=== PATIENT | female | born 1990 | race Caucasian/White ===

== ENCOUNTER 2024-01-01 19:26 | Inpatient (IN) | payer MEDICAID, SELFPAY ==
[2024-01-01] VITALS (35 sets, daily range): BP systolic 68–170; BP diastolic 55–105; PULSE 61–154; RESP 13–34; TEMP 36.8; O2SAT 94–99; BMI 26.2
--- NOTE | 2024-01-01 19:31 | XRR_ITS ---
PROCEDURE INFORMATION: Exam: XR Chest Exam date and time: 01/01/2024 8:12 PM Age: 32 years old Clinical indication: Other: Overdose TECHNIQUE: Imaging protocol: Radiologic exam of the chest. Views: 1 view. COMPARISON: No relevant prior studies available. FINDINGS: Lungs: Poor inspiratory effort with some crowding of pulmonary markings and possible accentuation of the apparent heart size. Mild peribronchial thickening and/or mild perihilar linear markings consistent with poor inspiratory effort and/or bronchitis and/or viral pneumonitis and/or reactive airway disease and/or atypical pulmonary interstitial edema. Pleural spaces: Unremarkable. No pleural effusion. No pneumothorax. Heart/Mediastinum: See Lungs finding. Bones/joints: Unremarkable. XR/XR chest 1V portable [id number] IMPRESSION: 1. Poor inspiratory effort with some crowding of pulmonary markings and possible accentuation of the apparent heart size. 2. Mild peribronchial thickening and/or mild perihilar linear markings consistent with poor inspiratory effort and/or bronchitis and/or viral pneumonitis and/or reactive airway disease and/or atypical pulmonary interstitial edema.
--- NOTE | 2024-01-01 19:32 | ECG_ITS ---
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 Measurements Intervals [place] Rate: 155 P: 74 RI: 115 QRS: 106 QRSD: 98 T: 56 QT: 277 QTc: 446 Interpretive Statements SINUS TACHYCARDIA WITH SHORT RI INTERVAL, POSSIBLE ATRIAL FLUTTER RIGHT AXIS DEVIATION [QRS AXIS > 100] NONSPECIFIC ST & T-WAVE ABNORMALITY No previous ECG available for comparison Electronically Signed On 01-02-2024 07:41:02 CDT by Milton Woodward M.D. [id number]
--- NOTE | 2024-01-01 19:38 | W.ED.OVERDOS ---
HPI - Overdose General: Chief Complaint: Overdose Stated Complaint: Overdose Time Seen by Provider: 01/01/24 19:30 Source: EMS Mode of arrival: EMS Limitations: altered mental status History of Present Illness: Patient arrived via EMS flight crew for overdose, patient was possibly doing drugs in [facility] when she overdosed. Patient was given Narcan and an IO started. Patient responded to the IO but not the Narcan. Patient possibly admitted to smoking marijuana, using methamphetamines and drinking alcohol. Patient knows her first name and can answer some questions but does not know her last name or date of . Boyfriend at that time was arrested because he had a meth pipe in his pocket and possibly taken to [facility] intermediate. Patient cannot control her full body twitching and spasming. Review of Systems General: Reports: ROS unobtainable due to medical condition and ROS unobtainable due to mental status Physical Exam Const: COMMON NORMALS: average body habitus, alert and well nourished OTHER: Patient has intermittent full body twitching and spasming but remains alert and coherent HENMT: COMMON NORMALS: normocephalic, atraumatic, hearing grossly normal bilaterally, external ears normal, Normal external nose present and moist oral mucous membranes HEAD & SCALP: normocephalic and atraumatic NOSE: Normal external nose present EXTERNAL EAR: Yes external ears normal Eye: COMMON NORMALS: Equal, round and reactive pupils present, EOMs intact bilaterally, conjunctivae normal and no scleral icterus CONJUNCTIVA: Yes conjunctivae normal PUPIL: Yes Equal, round and reactive pupils present Neck/C-Spine: COMMON NORMALS: full ROM, no lymphadenopathy, supple, no meningeal signs, no JVD and Thyroid normal THYROID: Thyroid normal Chest: COMMONS NORMALS: normal inspection of the chest and normal palpation of entire chest wall Resp: COMMON NORMALS: normal respiratory effort, No retractions, No use of accessory muscles and clear to auscultation bilaterally AUSCULTATION: clear to auscultation bilaterally Cardio: COMMON NORMALS: no JVD, regular rate, regular rhythm, S1 normal heart sound present, S2 normal heart sound present, No gallops present (Cardio), No clicks present (Cardio), No murmurs present (Cardio) and No rub (Cardio) RATE: regular rate RHYTHM: regular rhythm HEART SOUNDS: S1 normal heart sound present and S2 normal heart sound present GI: COMMON NORMALS: Normal to inspection, nondistended, normoactive bowel sounds present, Soft to palpation, non-tender, No hepatosplenomegaly present and no masses PALPATION: Yes Soft to palpation and Yes No hepatosplenomegaly present Neuro: SENSORIUM/ORIENTATION: Yes alert MENINGEAL SIGNS: Yes no meningeal signs Course Vital Signs: Vital signs: Vital Signs Temperature 98.3 F 01/01/24 19:43 Pulse Rate 89 01/01/24 22:40 Respiratory Rate 34 H 01/01/24 22:40 Blood Pressure 153/84 01/01/24 22:40 Pulse Oximetry 97 01/01/24 22:40 MDM - Overdose Medical Decision Making Presented with overdose by the flight crew. Patient does appear to be altered and cannot keep control of her arms and legs and spasming. Lab work was obtained which did show positive for amphetamines, THC and, alcohol. Patient had to be given Ativan for her restlessness and uncontrollable are moving. Dr. Charles was consulted. We will get a head CT and place the patient in ICU pending head CT. Medical Records I reviewed the patient's medical records. Lab Data I reviewed the patient's lab results. 01/01/24 19:50 01/01/24 19:50 Radiology Impressions Chest X-Ray 01/01/24 19:31 IMPRESSION: 1. Poor inspiratory effort with some crowding of pulmonary markings and possible accentuation of the apparent heart size. 2. Mild peribronchial thickening and/or mild perihilar linear markings consistent with poor inspiratory effort and/or bronchitis and/or viral pneumonitis and/or reactive airway disease and/or atypical pulmonary interstitial edema. Laboratory Results WBC 9.06 10^3/uL (3.29-11.43) 01/01/24 19:50 RBC 5.19 10^6/uL (3.85-5.65) 01/01/24 19:50 Hgb 16.30 g/dL (11.27-16.99) 01/01/24 19:50 Hct 47.9 % (36-47) H 01/01/24 19:50 MCV 92.3 fl (85-98) 01/01/24 19:50 MCH 31.4 pg (27-33) 01/01/24 19:50 MCHC 34.0 g/dL (30-55) 01/01/24 19:50 RDW 11.6 % (12.1-15.1) L 01/01/24 19:50 Plt Count 371 10^3/cmm (157-399) 01/01/24 19:50 MPV 10.1 fL (7.4-10.4) 01/01/24 19:50 Neut % (Auto) 84.9 % 01/01/24 19:50 Lymph % (Auto) 13.4 % 01/01/24 19:50 [place] % (Auto) 1.3 % 01/01/24 19:50 Eos % (Auto) 0.0 % 01/01/24 19:50 Baso % (Auto) 0.2 % 01/01/24 19:50 Neut # (Auto) 7.69 10^3/uL (1.8-7.7) 01/01/24 19:50 Lymph # (Auto) 1.2 10^3/uL (0.8-4.8) 01/01/24 19:50 [place] # (Auto) 0.1 10^3/uL (0.2-0.9) L 01/01/24 19:50 Eos # (Auto) 0.0 10^3/uL (0.0-0.8) 01/01/24 19:50 Baso # (Auto) 0.0 10^3/uL (0.0-0.1) 01/01/24 19:50 Nucleated RBC % (auto) 0 % 01/01/24 19:50 Nucleated RBCs # 0.0 /100WBC 01/01/24 19:50 Specimen Type Arterial 01/01/24 19:50 Sample Site Brachial, right 01/01/24 19:50 ABG pH 7.39 (7.35-7.45) 01/01/24 19:50 ABG pCO2 31.2 mmHg (35-45) L 01/01/24 19:50 ABG pO2 91.1 mmHg (80.0-100.0) 01/01/24 19:50 ABG HCO3 18.9 mmol/L (22-26) L 01/01/24 19:50 ABG O2 Saturation 97.4 01/01/24 19:50 ABG Base Excess -4.8 mmol/L (-2.0-2.0) L 01/01/24 19:50 Gilbert Test N/a 01/01/24 19:50 A-a O2 Gradient 2.5 mmHg (5-10) L 01/01/24 19:50 Hematocrit 47.9 % (37-47) H 01/01/24 19:50 Hgb O2 Saturation 92.6 % (95-100) L 01/01/24 19:50 Carboxyhemoglobin 4.5 %THgb (0.4-20.1) 01/01/24 19:50 Methemoglobin 0.4 % (0.4-1.5) 01/01/24 19:50 Total Hemoglobin 15.6 g/dL (12-16) 01/01/24 19:50 Sodium 146.0 mmol/L (131-143) H 01/01/24 19:50 Potassium 4.3 mmol/L (3.5-5.0) 01/01/24 19:50 Glucose 116.0 mg/dL (70-115) H 01/01/24 19:50 Ionized Calcium 1.1 mmol/L (1.1-1.4) 01/01/24 19:50 O2 Delivery Device Room air 01/01/24 19:50 Plant Cytologist ID [email or web address] 01/01/24 19:50 Sodium 143 mmol/L (136-145) 01/01/24 19:50 Potassium 4.4 mmol/L (3.5-5.1) 01/01/24 19:50 Chloride 106 mmol/L (98-107) 01/01/24 19:50 Carbon Dioxide 21 mmol/L (22-29) L 01/01/24 19:50 Anion Gap 20.4 (5-19) H 01/01/24 19:50 BUN 12 mg/dL (6-20) 01/01/24 19:50 Creatinine 0.6 mg/dL (0.5-0.9) 01/01/24 19:50 GFR Calculation 115.1 mL/min (90-130) 01/01/24 19:50 Glucose 122 mg/dL (65-115) H 01/01/24 19:50 Calculated Osmolality 297 mOsm/kg (285-295) H 01/01/24 19:50 Calcium 8.9 mg/dL (8.5-10.5) 01/01/24 19:50 Phosphorus 4.1 mg/dL (2.5-4.5) 01/01/24 19:50 Magnesium 2.2 mg/dL (1.7-2.3) 01/01/24 19:50 Total Bilirubin 0.6 mg/dL (0.15-1.2) 01/01/24 19:50 AST 18 U/L (0-32) 01/01/24 19:50 ALT 17 U/L (0-33) 01/01/24 19:50 Alkaline Phosphatase 81 U/L (35-105) 01/01/24 19:50 Creatine Kinase 92 U/L (26-192) 01/01/24 19:50 Troponin T Baseline < 6 ng/L (0-10) 01/01/24 19:50 Troponin T 120 Minute 6.00 ng/L (0-10) 01/01/24 21:52 Delta Troponin T 0.37104 ABS# (0-10) 01/01/24 21:52 C-Reactive Protein 3.0 mg/L (0.0-4.9) 01/01/24 19:50 Total Protein 8.0 g/dL (6.6-8.7) 01/01/24 19:50 Albumin 4.8 g/dL (3.5-5.2) 01/01/24 19:50 Globulin 3.2 g/dL (1.3-4.6) 01/01/24 19:50 HCG, Qual Negative (Negative) 01/01/24 19:50 Urine Color Yellow (Yellow) 01/01/24 21:49 Urine Appearance Clear (CLEAR) 01/01/24 21:49 Urine pH 5.5 (5-7) 01/01/24 21:49 Ur Specific [place] 1.011 (1.005-1.030) 01/01/24 21:49 Urine Protein Trace (Negative) A 01/01/24 21:49 Urine Glucose (UA) Negative (Normal) 01/01/24 21:49 Urine Ketones Negative (Negative) 01/01/24 21:49 Urine Blood Non-haemolysed trace (Negative) 01/01/24 21:49 Urine Nitrate Negative (Negative) 01/01/24 21:49 Urine Bilirubin Negative (Negative) 01/01/24 21:49 Urine Urobilinogen 0.2 mg/dL (Negative) 01/01/24 21:49 Ur Leukocyte Esterase 1+ (Negative) A 01/01/24 21:49 Urine RBC 0-2 /hpf (0-2) 01/01/24 21:49 Urine WBC 0-5 /hpf (0-5) 01/01/24 21:49 Ur Squamous Epith Cells 0-5 /hpf (0-5) 01/01/24 21:49 Amorphous Sediment Not Reportable 01/01/24 21:49 Urine Bacteria 4+ /hpf (NONE) H 01/01/24 21:49 Hyaline Casts 3.30 /lpf 01/01/24 21:49 Salicylates < 0.3 mg/dL (3-10) L 01/01/24 19:50 Urine Opiates Screen Negative ng/mL (Negative) 01/01/24 21:49 Acetaminophen < 5.0 ug/mL (10-30) L 01/01/24 19:50 Ur Barbiturates Screen Negative ng/mL (Negative) 01/01/24 21:49 Ur Phencyclidine Scrn Negative ng/mL (Negative) 01/01/24 21:49 Ur Amphetamines Screen Positive ng/mL (Negative) H 01/01/24 21:49 U Benzodiazepines Scrn Negative ng/mL (Negative) 01/01/24 21:49 Urine Cocaine Screen Negative ng/mL (Negative) 01/01/24 21:49 U Marijuana (THC) Screen Positive ng/mL (Negative) H 01/01/24 21:49 Ethyl Alcohol 177 mg/dL (0-10) H 01/01/24 19:50 All radiology interpretation(s) finalized by discharge Discharge Plan Discharge Patient Disposition: Admitted As Inpatient Clinical Impression: Polysubstance abuse Altered mental status Qualifiers: Altered mental status type: disorientation Qualified Code(s): R41.0 - Disorientation, unspecified Alcohol intoxication Qualifiers: Complication of substance-induced condition: uncomplicated Qualified Code(s): F10.920 - Alcohol use, unspecified with intoxication, uncomplicated Condition: Stable Coding Level of Care Code ED Janitorial Cleaner for Flex Mccann
[2024-01-01] MEDS: sodium chloride 0.9% 1,000 ML 999 ML IV (19:54)
[2024-01-01] MEDS: ondansetron 2 mg/ML SDV 2 mL 4 MG IVP (19:55)
[2024-01-01 20:00] LABS: ABG PCO2 31.2 mmHg (35-45); ABG PH Result 7.39 (7.35-7.45); Alveolar-Arterial Oxygen Gradi 2.5 mmHg (5-10); Arterial Blood Gas Hematocrit 47.9 % (37-47); Base Excess ABG -4.8 mmol/L (-2.0-2.0); Blood Gas Sample Site Brachial, right; Blood Gas Sample Type Arterial; Carboxyhemoglobin 4.5 %THgb (0.4-20.1); HCO3 ABG 18.9 mmol/L (22-26); HGB O2 Sat 92.6 % (95-100); Ionized Calcium Level - ABG 1.1 mmol/L (1.1-1.4); Methemoglobin 0.4 % (0.4-1.5); Oxygen Device ROOM AIR; Oxygen Saturation ABG 97.4; PO2 ABG 91.1 mmHg (80.0-100.0); Potassium Level - ABG 4.3 mmol/L (3.5-5.0); Total Hemoglobin 15.6 g/dL (12-16)
[2024-01-01 20:05] LABS: Basophils % 0.2 %; Hematocrit 47.9 % (36-47); Lymphocytes # 1.2 10^3/uL (0.8-4.8); Lymphocytes % 13.4 %; Mean Corpuscular Hemoglobin 31.4 pg (27-33); Mean Corpuscular Volume 92.3 fl (85-98); Mean Platelet Volume 10.1 fL (7.4-10.4); Monocytes # 0.1 10^3/uL (0.2-0.9); Monocytes % 1.3 %; Neutrophils # 7.69 10^3/uL (1.8-7.7); Neutrophils % 84.9 %; Nucleated Red Blood Cells % 0 %; Platelet Count 371 10^3/cmm (157-399); Red Blood Count 5.19 10^6/uL (3.85-5.65); Red Cell Distribution Width 11.6 % (12.1-15.1); White Blood Count 9.06 10^3/uL (3.29-11.43)
[2024-01-01 20:26] LABS: Troponin(5th) Baseline < 6 ng/L (0-10)
[2024-01-01 20:27] LABS: Acetaminophen < 5.0 ug/mL (10-30); Alanine Aminotransferase 17 U/L (0-33); Albumin Level 4.8 g/dL (3.5-5.2); Alcohol Level 177 mg/dL (0-10); Alkaline Phosphatase 81 U/L (35-105); Aspartate Amino Transferase 18 U/L (0-32); Blood Urea Nitrogen 12 mg/dL (6-20); Calcium 8.9 mg/dL (8.5-10.5); Carbon Dioxide 21 mmol/L (22-29); Chloride 106 mmol/L (98-107); Creatine Phosphokinase 92 U/L (26-192); Creatinine Clr Calc Pharmacy 117.9099; Globulin 3.2 g/dL (1.3-4.6); Glomerular Filtration Rate 115.1 mL/min (90-130); Glucose 122 mg/dL (65-115); Magnesium 2.2 mg/dL (1.7-2.3); Osmolality Calculated 297 mOsm/kg (285-295); Phosphorus 4.1 mg/dL (2.5-4.5); Salicylate < 0.3 mg/dL (3-10); Sodium 143 mmol/L (136-145); Total Bilirubin 0.6 mg/dL (0.15-1.2)
[2024-01-01 20:28] LABS: Anion Gap 20.4 (5-19); Potassium 4.4 mmol/L (3.5-5.1)
[2024-01-01 20:43] LABS: HCG, Serum Qual Negative (Negative)
[2024-01-01] MEDS: LORazepam 2 mg/mL INJ 1 mL IVP ×2 (21:13→23:18)
[2024-01-01 22:02] LABS: Bilirubin Urine Negative (Negative); Blood Urine Non-haemolysed trace (Negative); Glucose Urine UA Negative (Normal); Ketones Urine Negative (Negative); Leukocyte Esterase Urine 1+ (Negative); Nitrate Urine Negative (Negative); Protein Urine Trace (Negative); Specific Gravity, Urine 1.011 (1.005-1.030); Urine Appearance Clear (CLEAR); Urine Color Yellow (Yellow); Urobilinogen Urine 0.2 mg/dL (Negative); pH Urine 5.5 (5-7)
[2024-01-01 22:07] LABS: Add Urine Microscopic? YES; Bacteria Urine 4+ /hpf; RBC Urine 0-2 /hpf (0-2); Squamous Epithelial Cell Urine 0-5 /hpf (0-5); WBC Urine 0-5 /hpf (0-5)
[2024-01-01 22:09] LABS: Amphetamines Screen Urine Positive (Negative); Barbiturates Screen Urine Negative (Negative); Benzodiazepines Screen Urine Negative (Negative); Cocaine Screen Urine Negative (Negative); Opiate Screen Urine Negative (Negative); PCP Screen Urine Negative (Negative); THC Screen Urine Positive (Negative)
[2024-01-01 22:14] LABS: Add Urine Culture? Yes
[2024-01-01 22:17] LABS: Troponin 5 2HR Delta 0.00001 ABS# (0-10)
--- NOTE | 2024-01-01 23:05 | CTR_ITS ---
PROCEDURE INFORMATION: Exam: CT Head Without Contrast Exam date and time: 01/01/2024 11:34 PM Age: 32 years old Clinical indication: Alteration of consciousness; Transient alteration of awareness; Additional info: Overdose TECHNIQUE: Imaging protocol: Computed tomography of the head without contrast. Radiation optimization: All CT scans at this facility use at least one of these dose optimization techniques: automated exposure control; mA and/or kV adjustment per patient size (includes targeted exams where dose is matched to clinical indication); or iterative reconstruction. COMPARISON: No relevant prior studies available. RADIATION DOSE METRICS: Total DLP (mGy-cm): 1164.68 FINDINGS: Brain: Normal. No hemorrhage. Unremarkable white matter. No mass effect. Cerebral ventricles: No ventriculomegaly. Paranasal sinuses: Visualized sinuses are unremarkable. No fluid levels. Mastoid air cells: Visualized mastoid air cells are well aerated. Bones: Unremarkable. No acute fracture. Soft tissues: Unremarkable. Other findings: Motion artifact does moderately limit the sensitivity of this examination. CT/CT head wo con* [id number] IMPRESSION: No acute findings.Motion artifact does moderately limit the sensitivity of this examination.
[2024-01-02] VITALS (27 sets, daily range): BP systolic 112–156; BP diastolic 65–105; PULSE 70–136; RESP 14–27; TEMP 36.7–37.4; O2SAT 93–100; BMI 26.6
--- NOTE | 2024-01-02 00:03 | P.HP_ITS ---
Providers/Chief Complaint 2 Admitting Physician: Kulwant Charles Chief Complaint: Overdose History of Present Illness 32-year-old lady was brought in from [facility] after apparent overdose, with altered mental status, did not really respond to Narcan, IO access was obtained. Later with noted bizarre behavior with drinking, shakes, shaking her head [id number]. Admitted to drink alcohol, UDS positive for marijuana, vitamin, she reportedly admitted methamphetamine use to [employer], however, denied in the ER. She is unable to provide information including her name or date of which she states does not remember. She is not currently taking any medications. Does not provide any medical history. A male wire tester which she states is a friend was arrested after reported finding of methamphetamine pipe on his person. While in ER patient is having intermittent writhing, shaking movements, shaking and turning her head left or right, does make eye contact during this and answers some of the questions. She at different times of stated that her name is either Rosita or to me stated Birgit. When obtaining social history, history of any substance use, discussing UDS results, she exclaims he gave me meth? , Is that why I am like this? . She is reported to be having visual hallucinations by ER staff. Review of Systems 2 General: Reports: ROS unobtainable due to mental status PFSH Acute 2 PFSH: Medical History (Updated 01/02/24 @ 00:12 by Kulwant Charles MD) Medical history unknown Social History (Updated 01/02/24 @ 00:08 by Kulwant Charles MD) Alcohol intake: current Vitals/I&O/Wt Last Vital Signs Temp 98.3 F 01/01/24 19:43 Pulse 79 01/01/24 23:45 Resp 14 01/01/24 23:45 BP 170/97 01/01/24 23:45 Pulse Ox 96 01/01/24 23:45 01/01/24 01/01/24 01/02/24 14:59 22:59 06:59 Intake Total 1000 / 1000 Balance 1000 / 1000 Weight last 48 hrs Weight 64.864 kg Physical Exam 2 Narrative: She is awake, partially cooperative, vocalizing, turning her shoulders, torso, head shaking [id number], writhing head movements. Makes eye contact, intermittently answers questions. Const: COMMON NORMALS: alert ORIENTATION/CONSCIOUSNESS: Yes awake HENMT: COMMON NORMALS: oropharynx normal Neck/C-Spine: COMMON NORMALS: no JVD Resp: COMMON NORMALS: normal respiratory effort and clear to auscultation bilaterally AUSCULTATION: clear to auscultation bilaterally Cardio: COMMON NORMALS: no JVD, regular rhythm, S1 normal heart sound present, S2 normal heart sound present and No murmurs present (Cardio) RHYTHM: regular rhythm HEART SOUNDS: S1 normal heart sound present and S2 normal heart sound present GI: COMMON NORMALS: Normal to inspection, nondistended, normoactive bowel sounds present, Soft to palpation and non-tender PALPATION: Yes Soft to palpation Extremity: COMMON NORMALS: no joint enlargement and no pedal edema Neuro: COMMON NORMALS: moves all extremities SENSORIUM/ORIENTATION: Yes alert Data 01/01/24 19:50 01/01/24 19:50 A&P Assessment and plan (1) Altered mental status: Acute encephalopathy, possibly toxic with polysubstance intoxication, known alcohol intoxication, also possible marijuana, amphetamine, possibly other unknown intoxicants. Reviewed vitals, CBC, ABG, CMP, magnesium, CRP, hCG, UA, UDS, chest x-ray, ER note, discussed with ER provider. History obtained from collateral sources including ER staff. Appears to have polysubstance intoxication, her male wire tester was arrested with a methamphetamine pipe. She denies use but did admit to use of methamphetamine to [employer] reportedly. Test positive for amphetamine on UDS. Will send confirmatory test. Additionally with alcohol intoxication, unknown whether at risk of withdrawal. Visual hallucinations reported by ER staff. Will give benzodiazepine per [facility] protocol, timing of, multivitamin. May require additional chemical sedation, admission to ICU. Seizure precautions. At risk of hypertension, at risk of arrhythmia, monitor on telemetry. Reassess mental status. Reorient. Likely may require additional IV benzodiazepines, possibly Precedex drip. CT of the head in progress. Qualifiers: Altered mental status type: disorientation Qualified Code(s): R41.0 - Disorientation, unspecified (2) Polysubstance abuse: Please revisit with her regarding substance use once mental status improves. Monitor for signs of withdrawal. Encourage cessation. (3) Alcohol intoxication: Intoxication versus withdrawal, although has been drinking reportedly. Reports history of withdrawal and seizure. Benzodiazepines per [facility] protocol, timing, folic acid, multivitamin. Encourage abstinence from alcohol. Qualifiers: Complication of substance-induced condition: uncomplicated Qualified Code(s): F10.920 - Alcohol use, unspecified with intoxication, uncomplicated (4) Bronchitis: Incidentally noted peribronchial thickening, perihilar linear markings due to poor inspiratory effort versus bronchitis. Once she is able to participate add incentive spirometer. Monitor oxygenation. Plan Unknown identity: She keeps providing different first names, cannot recall her last name or date of . Case management consultation. Attestations 2 Medical Necessity Statement*: Admission of over 2 midnights anticipated for assessment management of acute encephalopathy, polysubstance intoxication, possible withdrawal, with significant cognitive effects memory impairment, bizarre behavior, hallucinations. Unknown past medical history or identity. Coding Level of Care Code Critical Care >/= 30 minutes Critical care time (in minutes): 35 The high probability of a clinically significant, sudden or life threatening deterioration, as referenced in this documentation, required my full and direct attention, intervention and personal management. The critical care time shown is in addition to time spent performing any reported separately billable procedures and includes the following: [x] Data and vital sign review and interpretation [x ] Patient assessment, examination and intervention [x] Medication orders and management [x] Patient/Family updates as able [x] Care Coordination and Documentation. Diagnoses Altered mental status R41.0 Altered mental status type: disorientation Polysubstance abuse F19.10 Alcohol intoxication F10.920 Complication of substance-induced condition: uncomplicated Bronchitis J40
--- NOTE | 2024-01-02 00:30 | PC.NURSE ---
Arrival to ICU 9: Pt arrived from ER via stretcher @0023. Continuos cardiac monitoring initiated. 1:1 sitter continued from ER, see paper chart for 15min safety checks. Dr. Charles notified @0045 that pt is able to use the bedside commode and can communicate when she needs to go to the bathroom- new order to d/c reis catheter. Pt is confused, unable to answer any orientation questions, but calm and cooperative.
--- NOTE | 2024-01-02 01:32 | ECG_ITS ---
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 Measurements Intervals [place] Rate: 88 P: 65 [place]: 132 QRS: 59 QRSD: 101 T: 65 QT: 357 QTc: 433 Interpretive Statements SINUS RHYTHM WITH SINUS ARRHYTHMIA Compared to ECG 01/01/2024 19:40:39 Right-axis deviation no longer present T-wave abnormality no longer present Electronically Signed On 01-02-2024 07:43:06 CDT by Milton Woodward M.D. [email or web address]
[2024-01-02 02:05] LABS: Basophils % 0.2 %; Eosinophils % 0.1 %; Hematocrit 42.5 % (36-47); Lymphocytes # 1.9 10^3/uL (0.8-4.8); Lymphocytes % 15.5 %; Mean Corpuscular HGB Conc 33.9 g/dL (30-55); Mean Corpuscular Hemoglobin 31.9 pg (27-33); Mean Corpuscular Volume 94.2 fl (85-98); Mean Platelet Volume 9.9 fL (7.4-10.4); Monocytes # 0.5 10^3/uL (0.2-0.9); Monocytes % 4.3 %; Neutrophils # 9.59 10^3/uL (1.8-7.7); Neutrophils % 79.7 %; Nucleated Red Blood Cells % 0 %; Platelet Count 312 10^3/cmm (157-399); Red Blood Count 4.51 10^6/uL (3.85-5.65); Red Cell Distribution Width 11.7 % (12.1-15.1); White Blood Count 12.05 10^3/uL (3.29-11.43)
[2024-01-02 02:28] LABS: Alanine Aminotransferase 18 U/L (0-33); Albumin Level 4.4 g/dL (3.5-5.2); Alkaline Phosphatase 74 U/L (35-105); Aspartate Amino Transferase 16 U/L (0-32); Blood Urea Nitrogen 9 mg/dL (6-20); Calcium 8.6 mg/dL (8.5-10.5); Carbon Dioxide 20 mmol/L (22-29); Chloride 105 mmol/L (98-107); Creatinine Clr Calc Pharmacy 143.0047; Glomerular Filtration Rate 142.1 mL/min (90-130); Glucose 91 mg/dL (65-115); Osmolality Calculated 288 mOsm/kg (285-295); Sodium 140 mmol/L (136-145); Total Bilirubin 0.8 mg/dL (0.15-1.2); Total Protein 7.4 g/dL (6.6-8.7)
[2024-01-02 02:29] LABS: Anion Gap 19.1 (5-19); Potassium 4.1 mmol/L (3.5-5.1); Troponin 5 6HR Delta 0.00001 ng/L (0-12)
[2024-01-02] MEDS: lactated ringers 1,000 ML 100 ML IV (02:32)
--- NOTE | 2024-01-02 05:07 | PC.NURSE ---
1:1 Sitter: Pt is confused but remains calm and cooperative. Pt follows all safety instructions. Dr. Charles notified, order to d/c 1:1 sitter.
--- NOTE | 2024-01-02 06:04 | PC.NURSE ---
R. Leg Pain: Site of previous IO placed by [employer]. Removed in ER. Site is dressed w/ gauze secured with coband.
[2024-01-02] MEDS: LORazepam 2 mg/mL INJ 1 mL IVP (08:17)
[2024-01-02] MEDS: thiamine 100 mg Tablet PO (08:17)
[2024-01-02] MEDS: folic acid 1 mg Tablet PO (08:17)
[2024-01-02] MEDS: multivitamin therapeutic Tablet 1 TAB PO (08:17)
--- NOTE | 2024-01-02 08:27 | PC.NURSE ---
Up to bedside commode, accompanied by this nurse and RT. Carlos Manuel
--- NOTE | 2024-01-02 08:38 | PC.NURSE ---
Patient gives nurse a phone number for her mother, Glenis [phone]. Nurse calls number and speaks with mother. Nursing staff verifying information.
[2024-01-02 08:52] LABS: Hepatitis A Antibody IgM Non-Reactive (Nonreactive); Hepatitis B Core IgM Non-Reactive (Nonreactive); Hepatitis B Surface Antigen Non-Reactive (Nonreactive)
[2024-01-02 09:01] LABS: HIV 1 & 2 Antibody Non-Reactive (Non-Reactiv); HIV 1 & 2 Antigen Non-Reactive (Non-Reactiv)
--- NOTE | 2024-01-02 09:03 | PC.NURSE ---
Addendum entered by Sachin Bowman RN 01/02/24 11:49: They already have patient information due to patient being found in there park and patient being air evac to [facility]. [place] has active investigation, BF has been arrested and being held of Federal charges. Original Note: [employer] service calling to check on patient.
[2024-01-02 09:16] LABS: Hepatitis C Virus Antibody Non-Reactive (Nonreactive)
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
--- NOTE | 2024-01-02 10:47 | PC.NURSE ---
Attempted to read 96 hour hold rights to patient. Patient stated I am not staying here, I am Brii Barber and i am not crazy. I am not suicidal and you cant keep me unless you are going to arrest me. Patient wouldn't let me read her rights to her and she continued to rip up the copy of her rights and throw them on the floor.
--- NOTE | 2024-01-02 11:27 | PC.NURSE ---
Patient given PO Ativan per Dr. Currie due to elevated HR 140s, constant moving, jerks, and patient reports having seizures when she stops drinking.
[2024-01-02] MEDS: LORazepam 2 mg Tablet PO (11:29)
--- NOTE | 2024-01-02 11:32 | PC.NURSE ---
Name Brii Childers 88. Patient gives permission to call her mother, Glenis, who verifies information but gives 89. Unable to verify patient's ID.
--- NOTE | 2024-01-02 12:14 | PC.NURSE ---
Patient offered food and drink, refused.
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
--- NOTE | 2024-01-02 16:15 | PC.NURSE ---
Report called to MEL Pulido RN. Tess request ICU to hold patient until they situate another patient.
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
--- NOTE | 2024-01-02 17:17 | PC.NURSE ---
Patient and belongings wheeled to NPU accompanied by security.
[2024-01-02] MEDS: acetaminophen 325 mg Tablet 650 MG PO (17:46)
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
[2024-01-02 19:39] LABS: Glucose Point of Care 132 mg/dL (70-110)
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
[2024-01-03] MEDS: acetaminophen 325 mg Tablet 650 MG PO ×2 (05:38→18:07)
[2024-01-03 06:00] VITALS: BP 133/91; PULSE 95; RESP 18; TEMP 36.4; O2SAT 95
[2024-01-03 06:45] LABS: Basophils # 0.1 10^3/uL (0.0-0.1); Basophils % 0.7 %; Eosinophils # 0.1 10^3/uL (0.0-0.8); Eosinophils % 1.1 %; Hematocrit 48.4 % (36-47); Lymphocytes # 2.2 10^3/uL (0.8-4.8); Lymphocytes % 30.4 %; Mean Corpuscular HGB Conc 31.8 g/dL (30-55); Mean Corpuscular Hemoglobin 32.1 pg (27-33); Mean Corpuscular Volume 100.8 fl (85-98); Monocytes # 0.4 10^3/uL (0.2-0.9); Neutrophils # 4.51 10^3/uL (1.8-7.7); Neutrophils % 61.5 %; Nucleated Red Blood Cells % 0 %; Platelet Count 269 10^3/cmm (157-399); Red Cell Distribution Width 11.9 % (12.1-15.1); White Blood Count 7.33 10^3/uL (3.29-11.43)
[2024-01-03 07:06] LABS: Alanine Aminotransferase 18 U/L (0-33); Albumin Level 4.1 g/dL (3.5-5.2); Alkaline Phosphatase 75 U/L (35-105); Anion Gap 15.2 (5-19); Aspartate Amino Transferase 16 U/L (0-32); Blood Urea Nitrogen 13 mg/dL (6-20); Calcium 9.1 mg/dL (8.5-10.5); Carbon Dioxide 24 mmol/L (22-29); Chloride 102 mmol/L (98-107); Globulin 3.7 g/dL (1.3-4.6); Glomerular Filtration Rate 114.4 mL/min (90-130); Glucose 101 mg/dL (65-115); Osmolality Calculated 284 mOsm/kg (285-295); Potassium 4.2 mmol/L (3.5-5.1); Sodium 137 mmol/L (136-145); Total Bilirubin 2.1 mg/dL (0.15-1.2); Total Protein 7.8 g/dL (6.6-8.7)
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
[2024-01-03] MEDS: folic acid 1 mg Tablet PO (09:03)
[2024-01-03] MEDS: multivitamin therapeutic Tablet 1 TAB PO (09:03)
[2024-01-03] MEDS: thiamine 100 mg Tablet PO (09:03)
[2024-01-03 14:00] VITALS: BP 111/73; PULSE 100; RESP 17; TEMP 36.7; O2SAT 94
--- NOTE | 2024-01-03 14:59 | PC.NURSE ---
Patient denies anxiety, but keeps running her fingers through her hair. This nurse has observed strands of hair coming out. Patient states that she is not pulling out her hair, that she always does this and since she was a little girl, her hair falls out.
[2024-01-03 16:25] LABS: Chlamydia Trachomatis RNA TMA NOT DETECTED (NOT DETECTED); Neisseria Gonorrhoeae RNA, TMA NOT DETECTED (NOT DETECTED)
--- NOTE | 2024-01-03 16:51 | P.PN_ITS ---
Subjective 2 Subjective: Patient was seen this morning, she is alert oriented x 3, following all commands, she frustrated about being in the neuropsychiatric unit,Discussed her negative HIV test, hepatitis test, waiting on her gonorrhea chlamydia test, she denies any visual hallucinations, no auditory hallucination, denies feeling down depressed or sad, denies suicidal ideation, no homicidal nation she tells me her name, her date of which is correct, Vitals/I&O/Wt Last Vital Signs Temp 98.0 F 01/03/24 14:00 Pulse 100 01/03/24 14:00 Resp 17 01/03/24 14:00 BP 111/73 01/03/24 14:00 Pulse Ox 94 01/03/24 14:00 O2 Del Method Room Air 01/03/24 06:00 01/03/24 01/03/24 01/03/24 06:59 14:59 22:59 Output Total 200 / 200 Balance -200 / -200 Weight last 48 hrs Weight 64.864 kg Weight 66.224 kg Weight 66.633 kg Weight 66.361 kg Weight 64.864 kg Physical Exam 2 Const: COMMON NORMALS: no acute distress and patient oriented x3 Resp: COMMON NORMALS: normal respiratory effort, No retractions, No use of accessory muscles and clear to auscultation bilaterally AUSCULTATION: clear to auscultation bilaterally Cardio: COMMON NORMALS: regular rate, regular rhythm, S1 normal heart sound present and S2 normal heart sound present RATE: regular rate RHYTHM: r egular rhythm HEART SOUNDS: S1 normal heart sound present and S2 normal heart sound present GI: COMMON NORMALS: Normal to inspection, nondistended, normoactive bowel sounds present and non-tender Extremity: COMMON NORMALS: no pedal edema Neuro: COMMON NORMALS: patient oriented x3 Psych: COMMON NORMALS: mental status grossly normal Data 01/03/24 06:17 01/03/24 06:17 Micro: Microbiology 01/01/24 21:49 Urine Culture - Preliminary Urine,Clean Catch Gram Negative Rods A&P Assessment and plan (1) Altered mental status: -Back to baseline alert oriented x 3, following all commands -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 -Has evidence of UTI start cefdinir - Likely a combination of methamphetamine, alcohol, marijuana -Possible alcohol withdrawal -[facility] protocol -Continue to monitor mentation -Has episodes of tachycardia, poor eye contact, -96-hour hold on, due to concerns for acute psychosis, different stories from patient, different names for patient, different dates of , cannot confirm her story, she does not have a address, history is concerning, -Psychiatry consulted Qualifiers: Altered mental status type: disorientation Qualified Code(s): R41.0 - Disorientation, unspecified (2) Polysubstance abuse: Please revisit with her regarding substance use once mental status improves. Monitor for signs of withdrawal. Encourage cessation. (3) Alcohol intoxication: Intoxication versus withdrawal, although has been drinking reportedly. Reports history of withdrawal and seizure. Benzodiazepines per [facility] protocol, timing, folic acid, multivitamin. Encourage abstinence from alcohol. Qualifiers: Complication of substance-induced condition: uncomplicated Qualified Code(s): F10.920 - Alcohol use, unspecified with intoxication, uncomplicated (4) Bronchitis: Incidentally noted peribronchial thickening, perihilar linear markings due to poor inspiratory effort versus bronchitis. Once she is able to participate add incentive spirometer. Monitor oxygenation. Plan Unknown identity: She keeps providing different first names, cannot recall her last name or date of . Case management consultation. Attestations 2 Medical Necessity Statement*: Patient has UTI needs cefdinir, mentation back to normal normal, currently on neuropsych Diagnoses Altered mental status R41.0 Altered mental status type: disorientation Polysubstance abuse F19.10 Alcohol intoxication F10.920 Complication of substance-induced condition: uncomplicated Bronchitis J40
[2024-01-03] MEDS: nicotine 2 mg Gum BUCCAL ×2 (16:56→20:26)
[2024-01-03] MEDS: cefdinir 300 MG CAPSULE PO (18:09)
[2024-01-03 20:18] VITALS: BP 111/71; PULSE 100; RESP 18; O2SAT 99
[2024-01-03] MEDS: trazodone 50 mg Tablet PO (20:25)
[2024-01-03] MEDS: hyDROXYzine 25 mg Capsule 50 MG PO (20:25)
[2024-01-04 06:00] VITALS: BP 97/61; PULSE 67; RESP 14; O2SAT 98
[2024-01-04] MEDS: nicotine 2 mg Gum BUCCAL ×3 (07:41→17:13)
[2024-01-04] MEDS: thiamine 100 mg Tablet PO (07:41)
[2024-01-04] MEDS: cefdinir 300 MG CAPSULE PO ×2 (07:41→17:13)
[2024-01-04] MEDS: multivitamin therapeutic Tablet 1 TAB PO (07:41)
[2024-01-04] MEDS: folic acid 1 mg Tablet PO (07:41)
[2024-01-04 09:43] LABS: Basophils % 0.5 %; Eosinophils # 0.1 10^3/uL (0.0-0.8); Eosinophils % 1.5 %; Hematocrit 41.5 % (36-47); Lymphocytes # 1.6 10^3/uL (0.8-4.8); Lymphocytes % 26.7 %; Mean Corpuscular HGB Conc 33.3 g/dL (30-55); Mean Corpuscular Hemoglobin 31.7 pg (27-33); Mean Corpuscular Volume 95.2 fl (85-98); Mean Platelet Volume 10.2 fL (7.4-10.4); Monocytes # 0.4 10^3/uL (0.2-0.9); Monocytes % 6.5 %; Neutrophils # 3.79 10^3/uL (1.8-7.7); Neutrophils % 64.6 %; Nucleated Red Blood Cells % 0 %; Platelet Count 287 10^3/cmm (157-399); Red Blood Count 4.36 10^6/uL (3.85-5.65); Red Cell Distribution Width 11.7 % (12.1-15.1); White Blood Count 5.87 10^3/uL (3.29-11.43)
[2024-01-04 10:01] LABS: Alanine Aminotransferase 14 U/L (0-33); Alkaline Phosphatase 75 U/L (35-105); Aspartate Amino Transferase 15 U/L (0-32); Blood Urea Nitrogen 13 mg/dL (6-20); Calcium 8.7 mg/dL (8.5-10.5); Carbon Dioxide 26 mmol/L (22-29); Chloride 102 mmol/L (98-107); Globulin 3.4 g/dL (1.3-4.6); Glomerular Filtration Rate 114.4 mL/min (90-130); Glucose 123 mg/dL (65-115); Osmolality Calculated 287 mOsm/kg (285-295); Sodium 138 mmol/L (136-145); Total Bilirubin 1.1 mg/dL (0.15-1.2); Total Protein 7.4 g/dL (6.6-8.7)
[2024-01-04 14:00] VITALS: BP 113/73; PULSE 88; RESP 16; TEMP 36.7; O2SAT 98
--- NOTE | 2024-01-04 18:45 | W.PM.NPUPNS ---
Subjective NPU Subjective: Patient presented today reporting that she is doing a lot better. We had a long conversation about her situation then what is going on. She does not have her phone because of finances and she is fearful that she lost her job at [employer] but was able to maintain decorum during her conversation as well as throughout the day. She she endorsed a desire to return home but denied that she was involved in any sex trafficking or anything like that and just reports that she made an air in judgment and choosing the wrong person to trust while she was trying to have a good time over the weekend. We discussed working with the social work team to try to get her back home in the next 48 hours and likely tomorrow. Mental Status Exam MSE Comments: This is an overweight female in hospital scrubs with appropriate grooming and eye contact.? No abnormal movements except for mild psychomotor retardation.? She was cooperative with exam in mild distress.? Speech was slightly decreased in rate and volume and normal prosody. Mood described as feeling better, affect was congruent. Thought process linear, thought content: Patient denied suicidal or homicidal ideation, there were no delusions reported or noted, she denied auditory or visual hallucinations. Attention and concentration were intact and memory appeared somewhat reliable but some things may have been intentionally elusive, but none were formally tested.? She is alert and oriented x 3.? Insight and judgment limited, impulse control is limited.? Vitals/I&O/Wt Last Vital Signs Temp 98.1 F 01/04/24 14:00 Pulse 88 01/04/24 14:00 Resp 16 01/04/24 14:00 BP 113/73 01/04/24 14:00 Pulse Ox 98 01/04/24 14:00 O2 Del Method Room Air 01/04/24 14:00 Weight last 48 hrs Weight 64.864 kg Data NPU 01/04/24 09:26 01/04/24 09:26 Micro: Microbiology 01/01/24 21:49 Urine Culture - Final Urine,Clean Catch Escherichia coli Microbiology 01/01/24 21:49 Urine,Clean Catch Urine Culture - Final Escherichia coli A&P Assessment and plan (1) Alcohol intoxication: Qualifiers: Complication of substance-induced condition: uncomplicated Qualified Code(s): F10.920 - Alcohol use, unspecified with intoxication, uncomplicated (2) Polysubstance abuse: (3) Methamphetamine use: (4) Alcohol withdrawal: (5) Altered mental status: Qualifiers: Altered mental status type: disorientation Qualified Code(s): R41.0 - Disorientation, unspecified Plan This is a 33-year-old white female who originally presented as a Emily Pizarro and then had multiple different identities reported who presented confused and under the influence with UDS positive for amphetamines and marijuana and BAL of 177 who denies any addiction or mental health issues. Additionally there were aspects of her story that were concerning for either sex trafficking or some other strange phenomena and she is unknown to our system so we have no history and every number that she gave yielded resistant historians. 1.? Continue off of medication. 2.? Continue continue every 15 minute checks for safety. 3.? Encourage individual, group and milieu therapies on the unit. 4. Obtain collateral information. 5. Encourage sober living treatment after discharge at the highest level care to which she is willing to commit. Involuntary Hold Information 96 Hour Hold: 96 Hour Involuntary Admission: Yes 96 Hour Hold Ending Date: 01/09/24 96 Hour Hold Ending Time: 09:15 Attestations NPU Medical Necessity Statement*: Inpatient hospitalization is medically necessary and the clinically appropriate intervention at this time. We will monitor medication to make changes as indicated. Likely length of stay 1-2 days Coding Level of Care Code Acute Code for [facility] F[facility] Diagnoses Alcohol intoxication F10.920 Complication of substance-induced condition: uncomplicated Polysubstance abuse F19.10 Methamphetamine use F15.10 Alcohol withdrawal F10.939 Altered mental status R41.0 Altered mental status type: disorientation
[2024-01-04] MEDS: acetaminophen 325 mg Tablet 650 MG PO (20:20)
[2024-01-04] MEDS: trazodone 50 mg Tablet PO (20:20)
[2024-01-04 22:00] VITALS: BP 106/58; PULSE 86; RESP 18; TEMP 36.9; O2SAT 97
[2024-01-05 06:00] VITALS: BP 95/58; PULSE 65; RESP 16; TEMP 36.6; O2SAT 97
[2024-01-05] MEDS: nicotine 2 mg Gum BUCCAL ×3 (06:47→16:58)
[2024-01-05] MEDS: thiamine 100 mg Tablet PO (09:25)
[2024-01-05] MEDS: multivitamin therapeutic Tablet 1 TAB PO (09:25)
[2024-01-05] MEDS: folic acid 1 mg Tablet PO (09:25)
[2024-01-05] MEDS: cefdinir 300 MG CAPSULE PO ×2 (09:25→17:56)
--- NOTE | 2024-01-05 09:25 | PC.NURSE ---
MEDS WERE SCANNED BY THIS NURSE BUT THEY DID NOT SAVE WHEN SCANNED. MEDS WERE GIVEN TO PT AT 0915
[2024-01-05 09:55] LABS: Basophils % 0.5 %; Eosinophils # 0.1 10^3/uL (0.0-0.8); Eosinophils % 0.8 %; Hematocrit 43.2 % (36-47); Lymphocytes # 1.8 10^3/uL (0.8-4.8); Lymphocytes % 22.8 %; Mean Corpuscular HGB Conc 33.3 g/dL (30-55); Mean Corpuscular Hemoglobin 31.9 pg (27-33); Mean Corpuscular Volume 95.6 fl (85-98); Mean Platelet Volume 10.1 fL (7.4-10.4); Monocytes # 0.3 10^3/uL (0.2-0.9); Monocytes % 4.3 %; Neutrophils % 71.3 %; Nucleated Red Blood Cells % 0 %; Platelet Count 291 10^3/cmm (157-399); Red Blood Count 4.52 10^6/uL (3.85-5.65); Red Cell Distribution Width 11.6 % (12.1-15.1); White Blood Count 7.71 10^3/uL (3.29-11.43)
[2024-01-05 10:14] LABS: Alanine Aminotransferase 15 U/L (0-33); Albumin Level 4.2 g/dL (3.5-5.2); Alkaline Phosphatase 72 U/L (35-105); Anion Gap 14.4 (5-19); Aspartate Amino Transferase 14 U/L (0-32); Blood Urea Nitrogen 12 mg/dL (6-20); Calcium 9.2 mg/dL (8.5-10.5); Carbon Dioxide 25 mmol/L (22-29); Chloride 105 mmol/L (98-107); Globulin 3.2 g/dL (1.3-4.6); Glomerular Filtration Rate 114.4 mL/min (90-130); Glucose 127 mg/dL (65-115); Osmolality Calculated 291 mOsm/kg (285-295); Potassium 4.4 mmol/L (3.5-5.1); Sodium 140 mmol/L (136-145); Total Bilirubin 0.6 mg/dL (0.15-1.2); Total Protein 7.4 g/dL (6.6-8.7)
[2024-01-05 14:00] VITALS: BP 131/86; PULSE 75; RESP 16; TEMP 36.7; O2SAT 99
--- NOTE | 2024-01-05 15:05 | P.NPUPN_ITS ---
Subjective NPU 2 Subjective: Patient presented today reporting that things are going well. She eventually did get an address from her . She now reportedly has an address to return to in the [place] area. We discussed making sure that everything checked out before likely discharge tomorrow. She continues to deny any symptoms or any need for medication. She denies any real addiction issues or need for sober living treatment. Mental Status Exam 2 MSE Comments: This is an overweight female in hospital scrubs with appropriate grooming and eye contact.? No abnormal movements except for mild psychomotor retardation.? She was cooperative with exam in mild distress.? Speech was slightly decreased in rate and volume and normal prosody. Mood described as feeling better, affect was congruent. Thought process linear, thought content: Patient denied suicidal or homicidal ideation, there were no delusions reported or noted, she denied auditory or visual hallucinations. Attention and concentration were intact and memory appeared somewhat reliable but some things may have been intentionally elusive, but none were formally tested.? She is alert and oriented x 3.? Insight and judgment limited, impulse control is limited.? Vitals/I&O/Wt Last Vital Signs Temp 97.8 F 01/05/24 06:00 Pulse 65 01/05/24 06:00 Resp 16 01/05/24 06:00 BP 95/58 01/05/24 06:00 Pulse Ox 97 01/05/24 06:00 O2 Del Method Room Air 01/05/24 06:00 Weight last 48 hrs Weight 64.864 kg Data NPU 01/05/24 09:46 01/05/24 09:46 Micro: Microbiology 01/01/24 21:49 Urine Culture - Final Urine,Clean Catch Escherichia coli Microbiology 01/01/24 21:49 Urine,Clean Catch Urine Culture - Final Escherichia coli A&P Assessment and plan (1) Alcohol intoxication: Qualifiers: Complication of substance-induced condition: uncomplicated Qualified Code(s): F10.920 - Alcohol use, unspecified with intoxication, uncomplicated (2) Polysubstance abuse: (3) Methamphetamine use: (4) Alcohol withdrawal: (5) Altered mental status: Qualifiers: Altered mental status type: disorientation Qualified Code(s): R41.0 - Disorientation, unspecified Plan This is a 33-year-old white female who originally presented as a Emily Pizarro and then had multiple different identities reported who presented confused and under the influence with UDS positive for amphetamines and marijuana and BAL of 177 who denies any addiction or mental health issues. Additionally there were aspects of her story that were concerning for either sex trafficking or some other strange phenomena and she is unknown to our system so we have no history and every number that she gave yielded resistant historians. 1.? Continue off of medication. 2.? Continue continue every 15 minute checks for safety. 3.? Encourage individual, group and milieu therapies on the unit. 4. Continued information that comes in is suggestive that there are parts of the story that she is not revealing. She has a DUI which goes against her position that she only ever drinks 1 beer. However there are no signs of acute psychiatric illness that would allow for continued hospitalization so we will likely discharge tomorrow. 5. Encourage sober living treatment after discharge at the highest level care to which she is willing to commit. Involuntary Hold Information 2 96 Hour Hold: 96 Hour Involuntary Admission: Yes 96 Hour Hold Ending Date: 01/09/24 96 Hour Hold Ending Time: 09:15 Attestations NPU 2 Medical Necessity Statement*: Inpatient hospitalization is medically necessary and the clinically appropriate intervention at this time. We will monitor medication to make changes as indicated. Likely length of stay 1-2 days Coding Level of Care Code Acute Code for [facility] Fwd Diagnoses Alcohol intoxication F10.920 Complication of substance-induced condition: uncomplicated Polysubstance abuse F19.10 Methamphetamine use F15.10 Alcohol withdrawal F10.939 Altered mental status R41.0 Altered mental status type: disorientation
[2024-01-05] MEDS: hyDROXYzine 25 mg Capsule 50 MG PO (18:03)
[2024-01-05 19:33] VITALS: BP 122/82; PULSE 90; RESP 16; TEMP 37.1; O2SAT 96
[2024-01-05] MEDS: trazodone 50 mg Tablet PO (21:00)
[2024-01-06 06:00] VITALS: BP 104/69; PULSE 88; RESP 16; TEMP 36.9; O2SAT 97
[2024-01-06] MEDS: cefdinir 300 MG CAPSULE PO (08:02)
[2024-01-06] MEDS: folic acid 1 mg Tablet PO (08:02)
[2024-01-06] MEDS: multivitamin therapeutic Tablet 1 TAB PO (08:02)
[2024-01-06] MEDS: thiamine 100 mg Tablet PO (08:02)
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
[2024-01-06] MEDS: nicotine 2 mg Gum BUCCAL ×2 (08:32→12:57)
[2024-01-06 09:08] VITALS: BP 104/69; PULSE 88; RESP 16; TEMP 36.9; O2SAT 97
[2024-01-06 14:00] VITALS: BP 121/75; PULSE 81; RESP 16; TEMP 37.2; O2SAT 98
[2024-01-06 15:25] LABS: RPR w(Moniotor) w/REFL Titer NON-REACTIVE (NON-REACTIVE)
[2024-01-07 11:01] LABS: Amphetamine 1400 ng/mL; Methamphetamine >15000 ng/mL; Methylenedioxyamphetamine negative; Methylenedioxyethylamphetamine negative; Methylenedioxymethamphetamine negative
== END 2024-01-06 14:51 | disposition home or self-care (01) | DRG 897 ==
LOC: ER 23:07 → ICU 23:25 → NP 01-02 16:34
PROVIDERS: Admitting Provider Internal Medicine; Emergency Provider Emergency Medicine; Visit Provider Family Medicine
DX: F10.129 Alcohol abuse with intoxication, unspecified (principal); F23 Brief psychotic disorder; N39.0 Urinary tract infection, site not specified; Y90.6 Blood alcohol level of 120-199 mg/100 ml; F15.90 Other stimulant use, unspecified, uncomplicated; F12.90 Cannabis use, unspecified, uncomplicated; J40 Bronchitis, not specified as acute or chronic; F17.210 Nicotine dependence, cigarettes, uncomplicated; R00.0 Tachycardia, unspecified; F63.3 Trichotillomania; B96.20 Unspecified Escherichia coli [E. coli] as the cause of diseases classified elsewhere
CPT/HCPCS: 36415; 36416; 36600; 70450; 71045; 80051; 80053; 80074; 80306; 80307; 80324; 80359; 81001; 82330; 82550; 82805; 82962; 83735; 84100; 84484; 84703; 85025; 86140; 86592; 87077; 87086; 87186; 87491; 87591; 87806; 93005; 96372; 96374; 96375; 96376; 97150; 97165; 99285; J2060; J2405; J3411; J7030; J7120